=== PATIENT | male | born 1995 | race Caucasian/White ===

== ENCOUNTER 2024-01-24 12:52 | Emergency (ER) | payer OTHER, SELFPAY ==
[2024-01-24] VITALS (8 sets, daily range): BP systolic 152–170; BP diastolic 72–100; PULSE 68–91; RESP 16–20; TEMP 36.3–37.1; O2SAT 98–100
[2024-01-24 13:51] LABS: Basophils Absolute Auto 0.1 K/mm3 (0.0-0.1); Basophils Percent Auto 1.1 % (0.2-1.2); Eosinophils Absolute Auto 0.3 K/mm3 (0-0.3); Hematocrit 43.8 % (42.0-52.0); Hemoglobin 15.8 g/dL (14.0-18.0); Immature Granulocyte Absolute 0.02 K/mm3 (0.00-0.031); Immature Granulocyte Percent A 0.2 % (0-0.5); Lymphocytes Absolute Auto 4.09 K/mm3 (0.9-3.2); Lymphocytes Percent Auto 39.2 % (18.3-44.2); Mean Corpuscular HGB Conc 36.1 g/dl (32-36); Mean Corpuscular Volume 88.7 fl (80-100); Monocytes Absolute Auto 0.9 K/mm3 (0.1-0.6); Monocytes Percent Auto 8.2 % (2.6-8.5); Neutrophils Absolute Auto 5.1 K/mm3 (1.3-6.7); Neutrophils Percent Auto 48.3 % (45.5-73.1); Platelet Count Result 335 k/mm3 (150-375); Red Blood Count 4.94 M/mm3 (4.6-6.20); White Blood Count 10.4 K/mm3 (4.5-10.0)
[2024-01-24 14:02] LABS: Alanine Aminotransferase 26 U/L (6-50); Albumin Level 5.2 g/dL (3.5-5.1); Alkaline Phosphatase 85 U/L (38-126); Anion Gap 19 mmol/L (4-12); Aspartate Amino Transferase 41 U/L (17-59); Bilirubin,Total 0.6 mg/dL (0.2-1.3); Blood Urea Nitrogen 7 mg/dL (9-20); Calcium 10.5 mg/dL (8.4-10.2); Carbon Dioxide 22 mmol/L (22-30); Chloride 101 mmol/L (98-107); Estimated CRCL calculation 121 ml/min; Estimated Glomerular Filt Rate > 60; Glucose 96 mg/dL (65-110); Magnesium 2.1 mg/dL (1.6-2.3); Potassium 3.3 mmol/L (3.4-5.0); Sodium 142 mmol/L (137-145)
[2024-01-24] MEDS: PHENobarbitaL sodium (*CRX) 130 MG/ML VIAL 390 MG IV PUSH (14:05)
[2024-01-24] MEDS: THIAMINE HCL INJ 100 MG, FOLIC ACID INJ 1 MG, MAGNESIUM SULFATE INJ 1 GM in LACTATED RI... IV CONT (14:33)
[2024-01-24 16:45] LABS: Ethanol 251 mg/dL (<10)
[2024-01-24 16:59] LABS: Barbiturate Screen Urine Positive (Negative)
[2024-01-24 17:00] LABS: Amphetamine Screen Urine Negative (Negative); Cannabinoid Screen Urine Positive (Negative); Cocaine Screen Urine Negative (Negative); Methadone Screen Urine Negative (Negative); Opiate Screen Urine Negative (Negative); Phencyclidine Screen Urine Negative (Negative)
[2024-01-24 17:23] LABS: Benzodiazepines Screen Urine Negative (Negative)
[2024-01-24] MEDS: PHENobarbitaL sodium (*CRX) 130 MG/ML VIAL IV PUSH (17:34)
--- NOTE | 2024-01-24 17:40 | ED.ALCOHOL ---
HPI - Alcohol General Chief Complaint: Alcohol Stated Complaint: etoh withdrawal Time Seen by Provider: 01/24/24 12:58 History of Present Illness HPI narrative: This is a 28-year-old male with a past medical history significant for significant alcohol abuse and previous substance use disorder. Patient resides near daily drinking of over a 5th of vodka. Patient states this has been longstanding he has had multiple attempts at quitting in the remote past. His most recent epicritic was supplemented with naltrexone oral pills as he did not want the injectable. He also was recently on a Librium taper which he said made him nauseous and did not complete. He states he has been having significant alcohol intake was recently several hours prior to arrival to the ED. Patient states he has had a history of withdrawals in the past with significant anxiety, shakes and feeling like he was having a seizure. He is presently awake alert and oriented answers all my questions appropriately but appears very antsy injury. He appears to have tremulousness of bilateral upper extremities and tongue fasciculations present. He is conversing in full sentences awake alert without any other acute complaints such as headache, nausea, vomiting, abdominal pain, diarrhea, fever, chills. No injuries or trauma. No recent illnesses otherwise. Related Data Allergies Allergy/AdvReac Type Severity Reaction Status Date / Time No Known Allergies Allergy Verified 01/24/24 13:06 Review of Systems Review of Systems: As reviewed above in the HPI Exam Narrative: GENERAL: Tremulous, anxious, shaking bilateral upper extremities at rest. Tongue fasciculations. Awake alert and answers questions appropriately. HEAD: [Normocephalic, atraumatic.] EYES: [PERRLA and EOMI.] ENT: Nares clear, no rhinorrhea or epistaxis. Mucous membranes moist. NECK: Supple. CHEST: [Clear to auscultation. No respiratory distress.] HEART: [Regular rate and rhythm]. No murmur heard. [Normal peripheral pulses.] ABDOMEN: [Soft, nondistended], [nontender], [No rigidity or guarding] EXTREMITIES: Normal range of motion. [No edema.] SKIN: Warm, dry, no rash. NEURO: [No focal deficits]. Alert and oriented [x3.] PSYCH: Tremulous with tongue fasciculations. Very anxious appearing, easily redirectable. Pleasant and cooperative. Course Vital Signs Vital signs: Vital Signs Temperature 37.1 C 07/25/24 12:56 Pulse Rate 91 01/24/24 12:56 Respiratory Rate 20 01/24/24 12:56 Blood Pressure 161/100 H 01/24/24 12:56 Pulse Oximetry 99 01/24/24 12:56 Temperature 36.6 C 01/24/24 17:54 Pulse Rate 78 01/24/24 17:54 Respiratory Rate 16 01/24/24 17:54 Blood Pressure 154/72 H 01/24/24 17:54 Pulse Oximetry 98 01/24/24 17:54 Oxygen Delivery Room Air 01/24/24 13:35 MDM - Alcohol MDM Narrative Medical decision making narrative: This is a 28-year-old male with significant alcohol abuse history who presents the ED for concerns of alcohol withdrawal. Patient does endorse alcohol use most recently several hours prior to arrival but states that he has had withdrawal symptoms even while he is still clinically intoxicated. He has a significant use disorder with daily intake of near 5th of vodka for several years. Has tried to quit in the past is requesting assistance with alcohol withdrawal symptoms presently. Has tried Librium and Valtrex in the past without success. Has not tried phenobarbital in the past. They have essentially stable high blood pressure without any tachycardia, fever, hypoxia. He is very anxious jittery and has bilateral tremulousness with tongue fasciculations. He is awake alert oriented not clinically intoxicated on my assessment but does have alcohol smell about him. Laboratory studies were obtained to assess patient's electrolyte panel and level of intoxication given that has never been here. No significant anemia or leukocytosis was found. Very
== END 2024-01-24 17:56 | disposition home or self-care (01) ==
PROVIDERS: Emergency Provider Student in an Organized Health Care Education/Training Program; PCP Nurse Practitioner
DX: F10.939 Alcohol use, unspecified with withdrawal, unspecified (principal); E87.29 Other acidosis; Y90.9 Presence of alcohol in blood, level not specified
CPT/HCPCS: 36415; 80053; 80307; 83735; 85025; 96365; 96366; 96375; 96376; 99284; J2560; J3411; J3475; J7120

== ENCOUNTER 2024-02-14 19:31 | Emergency (ER) | payer BC, OTHER, SELFPAY ==
[2024-02-14 19:48] VITALS: BP 159/104; PULSE 109; RESP 20; TEMP 36.6; O2SAT 100
--- NOTE | 2024-02-14 19:54 | ED.ALCOHOL ---
HPI - Alcohol General Chief Complaint: Alcohol Stated Complaint: alcohol withdrawl Time Seen by Provider: 02/14/24 19:42 Source: patient and family (Mother) Mode of arrival: ambulatory Limitations: no limitations History of Present Illness HPI narrative: Patient presents with alcohol use. He has had complicated history with abuse as well multiple attempts at sobriety. His last drink was this morning and the appointment have of vodka. He is complaining of weakness and hand numbness. Patient denies any nausea or vomiting. He denies any diaphoresis. He states his anxiety is severe, through the roof. States he is slightly restless but denies any tactile disturbances. States fracture slightly more urge but denies any visual disturbances/hallucinations. No headache. Patient states he has been using kratom. He is prescribed Librium through a doctor at [place] and also saw psychiatrist who prescribed him mirtazapine but this caused him to be sleepy and he was bored with sleeping so much so he relapsed and started drinking again. States previously a presented to the emergency department with similar symptoms a few weeks ago and was given phenobarbital. Although he desires to quit he states that he cannot in does not believe today is the day for him to try to accomplish that. He has previously had withdrawal from alcohol which complicated by some tremors but he denies any alcohol withdrawal seizures. He does have a history of a seizure related to Xanax withdrawal many years ago. He completed alcohol detox program in June 2023. Related Data Home Medications Medication Instructions Recorded Confirmed mirtazapine 15 mg tablet 15 mg PO DAILY 02/14/24 02/14/24 Allergies Allergy/AdvReac Type Severity Reaction Status Date / Time No Known Allergies Allergy Verified 02/14/24 19:35 [facility] Past Medical History Medical History Alcohol use disorder Benzodiazepine withdrawal with complication Hx withdrawal seizure Family History Family History Father ADD (attention deficit disorder) ADHD OCD (obsessive compulsive disorder) Social History Social History (Updated 02/14/24 @ 21:50 by Kinza Alcala MD) Alcohol intake: current Occupation/Education: occupation Additional occupation/education comments: Works in registration at [employer] Exam Narrative: GENERAL: Well-appearing, well-nourished, and in no acute distress. HEAD: Normocephalic, atraumatic. EYES: Non injected, non icteric ENT: Nares clear, no rhinorrhea or epistaxis. White film on tongue. NECK: Supple. CHEST: Speaking in full sentences. No respiratory distress. HEART: Tachycardic rate and rhythm. . ABDOMEN: Soft, nondistended. EXTREMITIES: [place] spasm of bilateral hands particularly on the left > right. No lower extremity edema. SKIN: Warm, dry, no rash. NEURO: No focal deficits. Alert and oriented x3. Tongue protrudes midline without deviation. No fasciculations. Mild tremor can be felt finger to finger tip with hands extended. Can perform serial additions. PSYCH: Normal mood and affect. Patient endorses severe anxiety. Course Vital Signs Vital signs: Vital Signs Temperature 97.8 F 02/14/24 19:48 Pulse Rate 109 H 02/14/24 19:48 Respiratory Rate 20 02/14/24 19:48 Blood Pressure 159/104 H 02/14/24 19:48 Pulse Oximetry 100 02/14/24 19:48 Temperature 97.8 F 02/14/24 19:48 Pulse Rate 80 02/14/24 20:56 Respiratory Rate 13 02/14/24 20:56 Blood Pressure 144/95 H 02/14/24 20:56 Pulse Oximetry 98 02/14/24 20:56 MDM - Alcohol MDM Narrative Medical decision making narrative: Patient presents with concerns related to alcohol use. Complicated history of use/abuse, and withdrawal. Last drink was this morning he had a point half of vodka. Also complaining bilateral hand numbness any
[2024-02-14 20:02] VITALS: BP 139/99; PULSE 97; RESP 17; O2SAT 100
[2024-02-14 20:07] LABS: Basophils Absolute Auto 0.1 K/mm3 (0.0-0.1); Basophils Percent Auto 1.1 % (0.2-1.2); Eosinophils Absolute Auto 0.3 K/mm3 (0-0.3); Eosinophils Percent Auto 3.3 % (0-4.4); Hemoglobin 15.9 g/dL (14.0-18.0); Immature Granulocyte Absolute 0.01 K/mm3 (0.00-0.031); Immature Granulocyte Percent A 0.1 % (0-0.5); Lymphocytes Absolute Auto 4.91 K/mm3 (0.9-3.2); Lymphocytes Percent Auto 60.7 % (18.3-44.2); Mean Corpuscular HGB Conc 36.1 g/dl (32-36); Mean Corpuscular Hemoglobin 32.1 pg (26-34); Mean Corpuscular Volume 88.9 fl (80-100); Mean Platelet Volume 9.7 fl (7.4-10.4); Monocytes Absolute Auto 0.7 K/mm3 (0.1-0.6); Monocytes Percent Auto 8.2 % (2.6-8.5); Neutrophils Absolute Auto 2.2 K/mm3 (1.3-6.7); Neutrophils Percent Auto 26.6 % (45.5-73.1); Platelet Count Result 365 k/mm3 (150-375); Red Blood Count 4.95 M/mm3 (4.6-6.20); Red Cell Distribution Width 13.2 % (11.5-14.5); White Blood Count 8.1 K/mm3 (4.5-10.0)
[2024-02-14 20:17] LABS: Alanine Aminotransferase 48 U/L (6-50); Alkaline Phosphatase 66 U/L (38-126); Anion Gap 20 mmol/L (4-12); Aspartate Amino Transferase 44 U/L (17-59); Bilirubin,Total 0.3 mg/dL (0.2-1.3); Blood Urea Nitrogen 12 mg/dL (9-20); Calcium 9.3 mg/dL (8.4-10.2); Carbon Dioxide 22 mmol/L (22-30); Chloride 100 mmol/L (98-107); Estimated CRCL calculation 104 ml/min; Estimated Glomerular Filt Rate > 60; Glucose 119 mg/dL (65-110); Magnesium 1.7 mg/dL (1.6-2.3); Potassium 3.7 mmol/L (3.4-5.0); Sodium 142 mmol/L (137-145)
[2024-02-14 20:19] LABS: Ethanol 273 mg/dL (<10)
[2024-02-14 20:22] LABS: INR 0.9; Prothrombin Time 12.9 Seconds (11.1-14.7)
[2024-02-14 20:23] LABS: Partial Thromboplastin Time 24.9 Seconds (22.3-36.8)
[2024-02-14] MEDS: SODIUM CHLORIDE 0.9% IV 1,000 ML 999 ML IV CONT (20:30)
[2024-02-14] MEDS: THIAMINE HCL 200 MG/2 ML VIAL 100 MG IV PUSH (20:30)
[2024-02-14 20:34] VITALS: BP 139/99; PULSE 79; RESP 14; O2SAT 100
[2024-02-14 20:38] LABS: Amphetamine Screen Urine Negative (Negative); Barbiturate Screen Urine Negative (Negative); Benzodiazepines Screen Urine Negative (Negative); Cannabinoid Screen Urine Positive (Negative); Cocaine Screen Urine Negative (Negative); Methadone Screen Urine Negative (Negative); Opiate Screen Urine Negative (Negative); Phencyclidine Screen Urine Negative (Negative)
[2024-02-14] MEDS: FOLIC ACID 1 MG/0.2 ML INJ IV PUSH (20:39)
[2024-02-14 20:46] LABS: Add Urine Microscopic? NO; Appearance Urine Clear (Clear); Bilirubin Urine Negative (Negative); Blood Urine Negative (Negative); Color Urine Yellow (Yellow); Glucose Urine UA Negative (Negative); Ketones Urine Trace mg/dL (Negative); Leukocyte Esterase Ur Negative LEU/UL (Negative); Nitrate Urine Negative (Negative); Protein Urine Negative (Negative); Specific Grav Ur 1.014 (1.001-1.035); Urobilinogen Urine 0.2 mg/dL (<2.0); pH Urine 7.5 (5.0-9.0)
[2024-02-14] MEDS: DEXTROSE 5%/0.9% SOD CHL 1,000 ML 250 ML IV CONT (20:55)
[2024-02-14 20:56] VITALS: BP 144/95; PULSE 80; RESP 13; O2SAT 98
[2024-02-14] MEDS: chlordiazePOXIDE (*CRX) 10 MG CAPSULE PO (21:00)
[2024-02-14 22:20] VITALS: BP 134/88; PULSE 80; RESP 17; TEMP 36.6; O2SAT 98
[2024-02-14 23:12] VITALS: BP 130/86; PULSE 85; RESP 15; O2SAT 99
== END 2024-02-14 23:14 | disposition home or self-care (01) ==
PROVIDERS: Emergency Provider Student in an Organized Health Care Education/Training Program; PCP Nurse Practitioner
DX: B37.0 Candidal stomatitis (principal); F10.120 Alcohol abuse with intoxication, uncomplicated; Y90.8 Blood alcohol level of 240 mg/100 ml or more; F12.10 Cannabis abuse, uncomplicated; E87.29 Other acidosis; R29.0 Tetany; F10.139 Alcohol abuse with withdrawal, unspecified
CPT/HCPCS: 36415; 80053; 80307; 81003; 83735; 85025; 85610; 85730; 96361; 96374; 96375; 99284; A9270; J3411; J7030; J7042